=== PATIENT | male | born 1940 | race Caucasian/White ===

== ENCOUNTER → 2017-04-01 | Outpatient (CLI) | payer MEDICARE, BC ==
[~2017-04-01] MED LIST: ASPIRIN PO; CHOLESTEROL MED; DIOVAN PO; LIPITOR PO; MULTI VITAMIN1 EACH; NITROQUICK0.4 MG SL; NORVASC; PERCOCET5/325 PO
--- NOTE | ~2017-04-01 | MR32 ---
[facility] A Service of [facility] & [facility] RADIOLOGY TEXT RESULTS PATIENT: PEARL COOL LOCATION: [facility] : 40 UNIT #: [id number] AGE: [address]: Lisbeth Rg MD SEX: M ORDER DR: [id number] [address] [address] [id number] O MR#: [id number] Acc #: [id number] NAME: PEARL COOL : 1940 SEX: M STUDY DATE/TIME: 04/01/2017 14:38 UNIT: [facility] ROOM: STUDY DESCRIPTION: MR Cervical Wo Contrast Attending Physician: Lisbeth Rg M.D. Referring Physician: Lisbeth Rg M.D. Ordering Physician: Lisbeth Rg M.D. Primary Care Physician: Lisbeth Rg M.D. MRI CENTER REPORT This report is preliminary unless electronic signature is present. EXAM MRI of the cervical spine without contrast dated 04/01/2017 COMPARISON None. HISTORY Increasing neck pain with left shoulder and left upper extremity pain for 2 weeks. FINDINGS Multisequence, multiplanar imaging of the cervical spine was obtained without contrast. There is loss of normal cervical curvature. Disc osteophyte complex are at multiple levels. Cord is displaced posteriorly at the level of C3-4 with anterior flattening. There also appears to be flattening of the cord at the level of C5-6, better seen in the axial plane. No obvious cord signal change is noted throughout the visualized cervical cord. Imaged posterior fossa and craniovertebral junction are unremarkable. Pre- and paravertebral soft tissues do not demonstrate any significant abnormality. C2-3: Concentric disc bulge with small central protrusion. Mild left facet hypertrophic change is seen without any significant canal stenosis or neural foraminal narrowing. C3-4: Disc osteophyte complex with bilateral uncinate spurs, worse on the left. There is [id number] left and mild right neural foraminal narrowing with yokj-zg-defeobjr canal stenosis. C4-5: Disc osteophyte complex with borderline size to mild canal stenosis. Superior bilateral neural foraminal narrowing is seen with mild bilateral facet changes. STS. [facility] A Service of [facility] & [facility] RADIOLOGY TEXT RESULTS PATIENT: PEARL COOL LOCATION: [facility] : 40 UNIT #: [id number] AGE: [address]: Lisbeth Rg MD SEX: M ORDER DR: C5-6: Disc osteophyte complex with bilateral uncinate spurs, severe right and moderate to severe left neural foraminal narrowing is seen with severe canal stenosis. C6-7: Disc osteophyte complex with superimposed left subarticular to foraminal moderate protrusion with [id number]-jy-tfdpoq left neural foraminal narrowing. Moderate canal stenosis is seen. C7-T1: Disc osteophyte complex which is slightly prominent in the left subarticular to foraminal region. Borderline size to mild canal stenosis is seen. No significant neural foraminal narrowing. IMPRESSION 1. Degenerative changes are noted at multiple levels as described above. 2. There is severe canal stenosis with severe right and moderate left neural foraminal narrowing at C5-6 without obvious cord signal change yet. 3. There is a left subarticular to foraminal moderate protrusion/extrusion at C6-7. Correlate with left C7 radiculopathy. Associated moderate to severe canal stenosis is also seen at C6-7. Dictated by... Mack Cuevas M.D. THIS IS AN ELECTRONICALLY VERIFIED REPORT Mack Cuevas M.D. at 04/02/2017 5:25 PM CPR/mjamanda TD: 04/02/2017 10:06 JOB #: [id number] MRI CENTER REPORT Page 1 of 1
== END | disposition home or self-care (01) ==
LOC: SMRI 13:51
DX: M54.2 Cervicalgia (principal); M48.02 Spinal stenosis, cervical region; M51.26 Other intervertebral disc displacement, lumbar region; M47.892 Other spondylosis, cervical region
CPT/HCPCS: 72141